=== PATIENT | male | born 1985 | race Caucasian/White ===

== ENCOUNTER 2018-07-20 08:53 | Emergency (ER) | payer OTHER ==
[~2018-07-20] VITALS: Wt 84.1 kg
[2018-07-20 11:15] VITALS: BP 128/76; PULSE 80; RESP 20
--- NOTE | 2018-07-20 11:17 | ERD ---
ER Documentation Chief Complaint Chief Complaint dysuria and "particles" in urine HPI 32-year-old male presents with multiple complaints. He has had multiple medical visits over the last few months. He has had a history of palpitations, upper back pain, frontal headaches. He has had CT head which shows sinusitis. He had a mildly elevated d-dimer and had a negative CT angios chest. He has had a history of intermittent elevated liver function test and gallbladder sludge. He has had epigastric burning chest pain. He has had a echocardiogram without navigate abnormal findings. He is concerned that his d-dimer was elevated and would like a recheck to see if it is increasing. 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 Denies hemoptysis, syncope, shortness of breath. Denies significant calf swelling. He has an additional complaint today noticing some dark urine with some sediment. Denies any new sexual partners or concern for STDs. ROS All systems reviewed and are negative except as per history of present illness. PMhx/Soc Medical and Surgical Hx: pt denies Medical Hx, pt denies Surgical Hx Hx Alcohol Use: No Hx Substance Use: No Hx Tobacco Use: No FmHx Family History: No diabetes, No coronary disease, No other Physical Exam Vitals Vital Signs Date Temp Pulse Resp B/P (MAP) Pulse Ox O2 O2 Flow FiO2 Time Delivery Rate 07/20/18 97.8 77 20 134/85 100 08:58 (101) Physical Exam Const: No acute distress Head: Atraumatic Eyes: Normal Conjunctiva ENT: Normal External Ears, Nose and Mouth. Neck: Full range of motion. No meningismus. Resp: Clear to auscultation bilaterally Cardio: Regular rate and rhythm, no murmurs Abd: Soft, non tender, non distended. Normal bowel sounds Skin: No petechiae or rashes Back: No midline or flank tenderness Ext: No cyanosis, or edema Neur: Awake and alert Psych: Normal Mood and Affect Result Diagram: 07/20/18 0950 07/20/18 0950 Results 24 hrs Laboratory Tests Test 07/20/18 09:50 07/20/18 09:52 White Blood Count 4.8 10^3/ul Red Blood Count 5.11 10^6/ul Hemoglobin 15.3 g/dl Hematocrit 42.9 % Mean Corpuscular Volume 84.0 fl Mean Corpuscular Hemoglobin 29.9 pg Mean Corpuscular Hemoglobin Concent 35.7 g/dl Red Cell Distribution Width 12.8 % Platelet Count 206 10^3/UL Mean Platelet Volume 9.3 fl Immature Granulocytes % 0.200 % Neutrophils % 65.6 % Lymphocytes % 25.2 % Monocytes % 7.4 % Eosinophils % 1.2 % Basophils % 0.4 % Nucleated Red Blood Cells % 0.0 /100WBC Immature Granulocytes # 0.010 10^3/ul Neutrophils # 3.2 10^3/ul Lymphocytes # 1.2 10^3/ul Monocytes # 0.4 10^3/ul Eosinophils # 0.1 10^3/ul Basophils # 0.0 10^3/ul Nucleated Red Blood Cells # 0.0 10^3/ul D-Dimer 339.38 ng/ml D-Dimer Comment Sodium Level 146 mmol/L Potassium Level 4.1 mmol/L Chloride Level 105 mmol/L Carbon Dioxide Level 30 mmol/L Anion Gap 11 Blood Urea Nitrogen 14 mg/dl Creatinine 0.95 mg/dl Est Glomerular Filtrat Rate mL/min > 60 mL/min Glucose Level 104 mg/dl Calcium Level 9.8 mg/dl Total Bilirubin 0.4 mg/dl Direct Bilirubin 0.00 mg/dl Indirect Bilirubin 0.4 mg/dl Aspartate Amino Transf (AST/SGOT) 26 IU/L Alanine Aminotransferase (ALT/SGPT) 48 IU/L Alkaline Phosphatase 66 IU/L Total Protein 7.1 g/dl Albumin 4.7 g/dl Globulin 2.40 g/dl Albumin/Globulin Ratio 1.95 Thyroid Stimulating Hormone (TSH) 1.880 MIU/L Free Thyroxine Index 3.23 ug/ml Thyroxine (T4) 9.0 ug/dl Triiodothyronine (T3) Uptake 35.9 % Urine Color YELLOW Urine Clarity CLOUDY Urine pH 6.0 Urine Specific [place] 1.021 Urine Ketones NEGATIVE mg/dL Urine Nitrite NEGATIVE mg/dL Urine Bilirubin NEGATIVE mg/dL Urine Urobilinogen 1+ mg/dL Urine Leukocyte Esterase NEGATIVE Fred/ul Urine Microscopic RBC 1 /HPF Urine Microscopic WBC 4 /HPF Urine Mucus FEW /HPF Urine Hemoglobin NEGATIVE mg/dL Urine Glucose NEGATIVE mg/dL Urine Total Protein NEGATIVE mg/dl Procedures/MDM D-dimer is less than 460. CBC and CMP showed no significant acute abnormalities. Thyroid studies normal. Urine shows urobilinogen without significant abnormal findings. Patient presents with limited history of intermittent multiple complaints including upper back pain, palpitations, headaches, weight loss of uncertain etiology. No identifiable emergent c ondition currently. I do not think further radiologic studies will be fruitful. Recommending further observation at home, rest, fluids, exercise, primary care follow-up and return precautions. Departure Diagnosis: Primary Impression: Multiple complaints Additional Impression: Dysuria Condition: Stable Patient Instructions: Symptoms With Uncertain Cause Additional Instructions: Examinations normal today. Uncertain cause of symptoms. Recommend further observation at home, primary care follow-up. May see orthopedist for back, neurology for headaches. LUCIE KWONG MD Jul 20, 2018 11:17
== END 2018-07-20 11:30 | disposition home or self-care (01) ==
LOC: FTE 08:53
DX: M54.6 Pain in thoracic spine (principal); R00.2 Palpitations; R51 Headache
CPT/HCPCS: 36415; 80053; 81001; 84436; 84443; 84479; 85025; 85378; Z7502; 99283